=== PATIENT | female | born 1960 | race Caucasian/White ===

== ENCOUNTER 2020-05-13 16:50 | Outpatient (CLI) | payer OTHER | END 2020-05-13 16:51 | disposition home or self-care (01) | LOC: COV 16:50 | PROVIDERS: ATTEND Family Medicine | DX: R05 Cough (principal); M79.10 Myalgia, unspecified site; R53.83 Other fatigue; R68.83 Chills (without fever); R07.0 Pain in throat; R09.81 Nasal congestion; R11.0 Nausea; Z20.822 Contact with and (suspected) exposure to COVID-19 ==

== ENCOUNTER 2020-09-08 21:43 | Outpatient (CLI) | payer OTHER | END 2020-09-08 21:44 | disposition critical access hospital (66) | LOC: EMS 21:43 | DX: R11.2 Nausea with vomiting, unspecified (principal); R46.4 Slowness and poor responsiveness; R27.9 Unspecified lack of coordination | CPT/HCPCS: A0425; A0427 ==

== ENCOUNTER 2020-09-08 21:49 | Emergency (ER) | payer OTHER ==
[2020-09-08 23:57] VITALS: BP 105/58
--- NOTE | 2020-09-08 23:58 | ED Physician Documentation ---
History of Present Illness - Stated complaint Stated Complaint: N/V - Chief complaint Chief Complaint: General - History obtained from History obtained from: Patient - Additonal information Additional information: 60-year-old woman, previously healthy presents with shaking and nonbloody nonbilious nausea and vomiting after smoking marijuana this evening. Her who is with her states that She was feeling fine prior to imbibing marijuana. Declining any medications.No other symptoms at present. AOX3 Review of Systems GI: reports: Nausea, Vomiting. 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 : None HEENT: None Psych: Other Musculoskeletal: None Derm: None - Allergies Allergies/Adverse Reactions: Allergies Allergy/AdvReac Type Severity Reaction Status Date / Time codeine AdvReac Unknown Verified 09/08/20 21:59 - Social History Does the pt smoke?: Yes Smoking Status: Current every day smoker Does the pt drink ETOH?: Yes Does the pt have substance abuse?: Yes Substance Use and Type: Marijuana - Immunizations Immunizations are current?: No - POLST Patient has POLST: No PD ED PE NORMAL - Vitals Vital signs reviewed: Yes - General General: Alert and oriented X 3, No acute distress, Well developed/nourished - HEENT HEENT: Atraumatic, PERRL, EOMI - Neck Neck: Supple, no meningeal sign - Cardiac Cardiac: RRR - Respiratory Respiratory: No respiratory distress, Clear bilaterally - Abdomen Abdomen: Non tender, Non distended - Derm Derm: Normal color, Warm and dry - Extremities Extremities: No deformity - Neuro Neuro: Alert and oriented X 3 - Psych Psych: Other (Diminished eye contact. Intoxicated appearing and slow to respond) Results - Vitals Vitals: Vital Signs - 24 hr 09/08/20 09/08/20 09/08/20 21:56 22:36 23:18 Temperature 36.4 C L Heart Rate 72 60 68 Respiratory 16 17 16 Rate Blood Pressure 103/78 108/81 H 106/77 O2 Saturation 97 98 98 Oxygen O2 Source Room air PD MEDICAL DECISION MAKING - ED course ED course: 60-year-old woman presented with acute marijuana intoxication and some nausea and vomiting related to this. She declined medication and rested with the lights off for a while, then requested to go home. Clinically sober at this time Her is also sober and is able to escort her home safely. Return precautions given. Departure - Departure Disposition: Home, Self Care Clinical Impression: Marijuana intoxication Condition: Good Instructions: Nausea Vomit Control Comments: You are seen in the emergency department for nausea related to cannabis use. Glad that you are feeling better! Please return to the emergency department if you have any other concerns.
== END 2020-09-09 00:15 | disposition home or self-care (01) ==
LOC: EDUNIT# → ED 21:49
DX: F12.929 Cannabis use, unspecified with intoxication, unspecified (principal); F17.200 Nicotine dependence, unspecified, uncomplicated
CPT/HCPCS: 99283; 99284

== ENCOUNTER 2020-09-24 14:54 | Outpatient (CLI) | payer OTHER ==
--- NOTE | 2020-09-24 15:49 | SLEEP CARE CONSULTATION ---
Information from patient questionnaire entered by Maureen Ozuna. I have reviewed and concur with the information entered by Maureen Ozuna. This document represents the service I personally performed and the decisions made by me, Ani Dennis ARNP. History of Present Illness Service Date and Time: 09/24/2020 1454 Reason for Visit: New patient Chief Complaint: reports: Unrefreshed sleep, Snoring, Excessive daytime sleepiness, Observed pauses in breathing, Frequent awakenings at night Date of Onset: at least 20 years Usual bedtime: 10:30 pm Time it takes to fall asleep: approx 30 minutes, sometimes more Snores at night: Yes Observed to quit breathing while asleep: Yes Number of times waking at night: 2-3 Reasons for waking at night: reports: Snoring, Gasping for air, Pain, Other (unknown reason). denies: Choking Toss, Turn, or Twitch while sleeping: Yes Recalls having dreams: Yes Usually gets out of bed at: 4:50 am; on day off sleeps in Feels refreshed in the morning: No Morning headache: Yes (sometimes, resolves around midday or not at all; 2-3 days a week) Sleepy or fatigued during the day: Yes Ever fallen asleep while driving: No (almost; drowsy driving, no accidents) Takes day naps: Yes (sometimes; on day off will doze on/off all day; on work days that are short) Dreams during day naps: Yes (occasionally) Prior sleep studies: No Additional HPI information: I had the pleasure of seeing VANESSA LORA today regarding the possibility of her having a sleep disorder. Her current complaints are unrefreshed sleep, excessive daytime sleepiness, frequent night awakenings, observed pauses in breathing, and snoring. She saw her PCP and talked about not sleeping well, even as a child. She does not wake up feeling rested. She has had fibromyalgia for 30 years. She sleeps partially sitting up. She cannot sleep on her back because she can't breathe well. She has been told by sister, friends and significant others that she stops breathing while asleep and she will gasp/choke awake. 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 Patient is and lives in [place]. Have you smoked in the past 12 months: No Alcohol use: Yes Alcohol amount and frequency: 1 drink on holidays Caffeine use: Yes Caffeine amount and frequency: 1 big cup every morning Family History Family history of sleep disordered breathing: Yes Family Hx Sleep Apnea: Sibling: Snoring Allergies and Home Medications Drug allergies reviewed: Yes (codeine, Demerol) Home medication list reviewed: Yes Allergy and home medication list: Sertraline Meloxicam, prn Review of Systems Weight gain over past 5 years: up and down 20 Weight loss over past 5 years: up and down 20 Cardiovascular: reports: have to sleep sitting up. denies: high blood pressure Gastrointestinal: denies: heartburn Neurological: reports: headaches Psychiatric: reports: anxiety Ear/Nose/Throat: reports: wisdom teeth removed. denies: tonsillectomy Endocrine: reports: sluggishness. denies: thyroid disease Musculoskeletal: reports: joint pain, joint swelling, muscle pain or cramping Immunologic: reports: sneezing, rash, allergies to food or environment (pollen, fur, milk) Physical Exam Blood Pressure: 101/64 Cuff size: wrist Heart Rate: 77 O2 Saturation: 97 Height: 5 ft 2 in Weight: 136 lb Body Mass Index: 24.8 BMI Classification: Healthy weight Neck circumference: 12.5 (inches) Mouth and throat: narrow oropharynx Soft palate: long Hard palate: normal Uvula: normal Uvula visualization: 50% Mallampati Class II Tongue: normal in size Tonsils: 2+ Neck: normal w/o lymphadenopathy or thyromegaly Heart: regular rate and rhythm Lungs: clear bilaterally Impression and Plan 1. Suspected Obstructive Sleep Apnea-Hypopnea Syndrome, as suggested by a history of loud and irregular snoring, observed cessation of breath while asleep, gasping or choking in sleep, morning headache, frequent awakening during the night, unrefreshed sleep, cognitive impairment, and excessive daytime sleepiness. Narrow oropharynx and obesity are common predisposing factors for obstructive sleep apnea-hypopnea syndrome. I recommend proceeding to polysomnography to confirm the diagnosis and to assess severity. If the patient has significant sleep disordered breathing, a manual CPAP titration study will also be performed to find the optimal treatment pressure. I informed the patient of what the sleep studies involve and after some discussion, obtained agreement to proceed. The pathophysiology of obstructive sleep apnea-hypopnea syndrome was discussed with the patient and health risks of cardiovascular and cerebrovascular disease if not treated. AAS brochure for obstructive sleep apnea-hypopnea syndrome given and reviewed. 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 Patient agreed to plan. * Schedule polysomnography +- manual CPAP titration study and return in 1-2 weeks after the study to discuss result and initiate therapy. * Avoid long distance driving or driving when feeling sleepy. * Avoid alcohol, sedative and muscle relaxant around bedtime. * Maintain a healthy weight. * Review instructions provided by trained office staff on how to prepare for the sleep study. * Return for follow-up after sleep study completed. Counseling Topics: Weight control Visit Type: In Office Time Spent with Patient (minutes): 33 Provider Statement: I spent 100% of the Face to Face Visit with the patient with greater than 50% spent counseling the patient and coordination of care.
[2020-09-24 15:50] VITALS: BP 101/64
== END 2020-09-24 14:55 | disposition home or self-care (01) ==
LOC: SC 14:54
PROVIDERS: ATTEND Nurse Practitioner Family
DX: G47.10 Hypersomnia, unspecified (principal); R41.89 Other symptoms and signs involving cognitive functions and awareness; G47.8 Other sleep disorders; R51.9 Headache, unspecified; R06.81 Apnea, not elsewhere classified; R06.83 Snoring
CPT/HCPCS: 99203; 99212

== ENCOUNTER 2021-12-06 08:56 | Outpatient (CLI) | payer OTHER ==
--- NOTE | 2021-12-06 14:14 | XRAY Report ---
PROCEDURE: Hand 3 View BILAT INDICATIONS: HAND PAIN TECHNIQUE: 3 views of the hand(s) acquired. COMPARISON: None FINDINGS: Bones: Distal interphalangeal joint space and narrowing particularly involving the third and fourth d igits noted bilaterally. Metacarpophalangeal joints preserved. Normal bone mineralization. No intrinsic osseous lesion. Soft tissues: No suspicious soft tissue calcifications. IMPRESSION: DIP osteoarthritis. Reviewed by: Josesito Leavitt MD on 12/06/2021 1:13 PM [facility]I Approved by: Josesito Leavitt MD on 12/06/2021 1:13 PM [id number] Station ID: [id number]
== END 2021-12-06 08:57 | disposition home or self-care (01) ==
LOC: DI 08:56
PROVIDERS: ATTEND Internal Medicine Cardiovascular Disease
DX: M19.042 Primary osteoarthritis, left hand (principal); M19.041 Primary osteoarthritis, right hand